=== PATIENT | male | born 1970 | race Caucasian/White ===

== ENCOUNTER 2021-03-20 18:02 | Emergency (ER) | payer OTHER, SELFPAY ==
[2021-03-20 18:07] VITALS: BP 153/97; PULSE 83; RESP 18; TEMP 36.3; O2SAT 98
[2021-03-20] MEDS: TETANUS,DIPHTHERIA,AC PERTUSSIS ADULT (0.5 ML) BOOSTRIX IM (18:47)
[2021-03-20] MEDS: LIDOCAINE, EPINEPHRINE, TETRACAINE VISCOUS SOLN 3 ML TOPICAL (18:48)
--- NOTE | 2021-03-20 19:28 | ED.GENADULT ---
HPI - General Adult General Chief complaint: Wound/Laceration Stated complaint: Laceration L Wrist Time Seen by Provider: 03/20/21 18:32 Source: patient, family and RN notes reviewed Mode of arrival: ambulatory Limitations: no limitations History of Present Illness HPI narrative: Patient is a 50-year-old male who presents to emergency for evaluation of laceration of the left hand. Patient cut the laceration with a shard of glass that he was cleaning. Patient notes his tetanus is not up-to-date. Patient notes mild aching pain denies any radicular symptoms or paresthesias Related Data Home Medications Medication Instructions Recorded Confirmed No Home Medications 03/20/21 03/20/21 Allergies Allergy/AdvReac Type Severity Reaction Status Date / Time No Known Allergies Allergy Verified 03/20/21 19:42 Review of Systems Review of Systems: All systems reviewed & are unremarkable except as noted in HPI and below PMFSH Social History Social History (Updated 03/20/21 @ 20:39 by Curt Byrd PA-C) Smoking status: Never smoker Gender identity (if verbalized by the patient): Male Exam Narrative: Exam Narrative: GENERAL: Well-appearing, well-nourished, and in no acute distress. HEAD: Normocephalic, atraumatic. EYES: PERRLA and EOMI. ENT: Nares clear, no rhinorrhea or epistaxis. Mucous membranes moist. EXTREMITIES: Normal range of motion. No edema. SKIN: Warm, dry, no rash. 3 cm linear laceration of the left thenar eminence extending into the wrist NEURO: No focal deficits. Alert and oriented x3. Neurovascularly intact. Capillary refill less than 2-second PSYCH: Normal mood and affect. Course Course Emergency Course: Patient in the room in no distress aware of case findings treatment plan and diagnosis Vital Signs Vital signs: Vital Signs Temperature 97.3 F L 03/20/21 18:07 Pulse Rate 83 03/20/21 18:07 Respiratory Rate 18 03/20/21 18:07 Blood Pressure 153/97 H 03/20/21 18:07 Pulse Oximetry 98 03/20/21 18:07 Temperature 97.3 F L 03/20/21 18:07 Pulse Rate 83 03/20/21 18:07 Respiratory Rate 18 03/20/21 18:07 Blood Pressure 153/97 H 03/20/21 18:07 Pulse Oximetry 98 03/20/21 18:07 Procedures Laceration Laceration 1: Date: 03/20/21 Time: 20:40 Site: upper extremity Side (If applicable): left Size (cm): 3 Description: linear Depth: simple, single layer Local Anesthetic: lidocaine 1% ====== Skin Level ====== Skin layer closed with: doe Number of sutures: 10 ====== Subcutaneous Layer ====== ====== Muscle Layer ====== ====== Tendon Layer ====== Medical Decision Making MDM Narrative Medical decision making narrative: Patients injury or pain is consistent with musculoskeletal etiology. No signs of neurological or vascular compromise on exam. Compartments and tisues are soft without signs of compartment syndrome. Pain is felt appropriate for further evaluation on an outpatient basis. Vital Signs Vital Signs: Vital Signs Temperature 97.3 F L 03/20/21 18:07 Pulse Rate 83 03/20/21 18:07 Respiratory Rate 18 03/20/21 18:07 Blood Pressure 153/97 H 03/20/21 18:07 Pulse Oximetry 98 03/20/21 18:07 Temperature 97.3 F L 03/20/21 18:07 Pulse Rate 83 03/20/21 18:07 Respiratory Rate 18 03/20/21 18:07 Blood Pressure 153/97 H 03/20/21 18:07 Pulse Oximetry 98 03/20/21 18:07 Discharge Plan Discharge Clinical Impression: Laceration Patient Disposition: Home, Self-Care Condition: Stable Instructions: Antibiotic Form, Laceration (ED) Additional Instructions: Keep wound clean and dry. Do not soak, take baths, or swim until wound is completely healed. If any signs of infection such as redness, swelling, increasing pain, drainage of purulent discharge, streaks up your extremity develop, seek medical attention immediately. Followup with your
[2021-03-20 21:00] VITALS: BP 132/68; PULSE 80; RESP 18; O2SAT 99
== END 2021-03-20 21:01 | disposition home or self-care (01) ==
PROVIDERS: Emergency Provider Emergency Medicine
DX: S61.412A Laceration without foreign body of left hand, initial encounter (principal); Z23 Encounter for immunization; W25.XXXA Contact with sharp glass, initial encounter
CPT/HCPCS: 12002; 90471; 90715; 99282

== ENCOUNTER 2022-05-18 12:27 | Outpatient (CLI) | payer OTHER, SELFPAY ==
[2022-05-18 12:37] LABS: Basophils Absolute Auto 0.1 K/mm3 (0.0-0.1); Basophils Percent Auto 0.6 % (0.2-1.2); Eosinophils Absolute Auto 0.1 K/mm3 (0-0.3); Eosinophils Percent Auto 0.6 % (0-4.4); Hemoglobin 13.9 g/dL (14.0-18.0); Immature Granulocyte Absolute 0.03 K/mm3 (0.00-0.031); Immature Granulocyte Percent A 0.4 % (0-0.5); Lymphocytes Absolute Auto 1.47 K/mm3 (0.9-3.2); Lymphocytes Percent Auto 18.9 % (18.3-44.2); Mean Corpuscular HGB Conc 34.8 g/dl (32-36); Mean Corpuscular Volume 92.2 fl (80-100); Mean Platelet Volume 9.8 fl (7.4-10.4); Monocytes Absolute Auto 0.8 K/mm3 (0.1-0.6); Monocytes Percent Auto 10.3 % (2.6-8.5); Neutrophils Absolute Auto 5.4 K/mm3 (1.3-6.7); Neutrophils Percent Auto 69.2 % (45.5-73.1); Platelet Count Result 248 k/mm3 (150-375); Red Blood Count 4.34 M/mm3 (4.6-6.20); Red Cell Distribution Width 13.2 % (11.5-14.5); White Blood Count 7.8 K/mm3 (4.5-10.0)
[2022-05-18 12:50] LABS: Alanine Aminotransferase 16 U/L (6-50); Albumin Level 4.5 g/dL (3.5-5.1); Alkaline Phosphatase 110 U/L (38-126); Anion Gap 6 mmol/L (8-16); Aspartate Amino Transferase 23 U/L (17-59); Bilirubin,Total 0.8 mg/dL (0.2-1.3); Blood Urea Nitrogen 13 mg/dL (9-20); Carbon Dioxide 25 mmol/L (22-30); Chloride 108 mmol/L (98-107); Cholesterol 155 mg/dL (0-200); Estimated Glomerular Filt Rate > 60; Glucose 100 mg/dL (65-110); HDL Direct 66 mg/dL; Potassium 4.3 mmol/L (3.4-5.0); Sodium 139 mmol/L (137-145); Triglycerides 57 mg/dL (<150)
[2022-05-18 13:01] LABS: LDL Cholesterol Direct 52 mg/dL
[2022-05-18 13:20] LABS: Prostate Specific Antigen 0.8 ng/mL (< OR = 4.0)
== END 2022-05-18 12:28 | disposition home or self-care (01) ==
LOC: ANHLAB 12:29
PROVIDERS: PCP Internal Medicine; Visit Provider Nurse Practitioner
DX: Z12.5 Encounter for screening for malignant neoplasm of prostate (principal); Z13.220 Encounter for screening for lipoid disorders; Z13.29 Encounter for screening for other suspected endocrine disorder
CPT/HCPCS: 36415; 80053; 80061; 84153; 85025; G0103

== ENCOUNTER 2022-10-19 14:49 | Outpatient (CLI) | payer OTHER, SELFPAY ==
[2022-10-19 17:20] LABS: HIV 1/2 Ab P24 Ag Result Negative (Negative)
[2022-10-19 17:29] LABS: Hepatitis C Virus Antibody Negative (Negative)
[2022-10-20 13:47] LABS: Rapid Plasma Reagin Non-Reactive (NonReactive)
[2022-10-23 16:08] LABS: Herpes Simplex Type 1 DNA PCR Not Detected; Herpes Simplex Type 2 DNA PCR Not Detected
== END 2022-10-19 14:50 | disposition home or self-care (01) ==
LOC: ANHLAB 14:51
PROVIDERS: PCP Internal Medicine; Visit Provider Nurse Practitioner
DX: Z72.51 High risk heterosexual behavior (principal)
CPT/HCPCS: 36415; 86592; 86703; 86803; 87491; 87529; 87591; G0432